=== PATIENT | female | born 1985 | race American Indian/Alaskan Native ===

== ENCOUNTER 2021-06-03 12:16 | Emergency (ER) | payer SELFPAY ==
[2021-06-03 12:25] VITALS: BP 116/77
--- NOTE | 2021-06-03 13:05 | Emergency Department Report ---
ED Abdominal Pain HPI - General Chief Complaint: Abdominal Pain Stated Complaint: KIDNEYS,DEHYDRATED,VOMITING Time Seen by Provider: 06/03/21 13:00 Source: patient Mode of arrival: Ambulatory Limitations: No Limitations - History of Present Illness Initial Comments: 35-year-old -[place] female presents to the emergency room for left upper abdominal pain that wraps around her back x1 month. Patient reports diarrhea and vomiting since this morning. Patient is 5 para 3 last menstrual period 06/01/2021. Patient does admit to alcohol use EtOH a and cigarette use. Patient denies any urinary symptoms. Past medical history of asthma currently takes no medications on a daily basis has had kidney stones and has had lithotripsy in the past. Denies any hematuria. MD Complaint: abdominal pain Onset/Timin -: month(s) Location: LUQ Radiation: none, back Migration to: no migration Severity scale (0 -10): 9 Quality: cramping, stabbing, sharp Consistency: intermittent Improves With: nothing Worsens With: nothing Associated Symptoms: denies other symptoms - Related Data LMP Date: 06/01/21 Previous Rx's Medication Instructions Recorded Last Taken Type Cyclobenzaprine [Flexeril] 1 tab PO BID PRN #20 tablet 01/28/16 Unknown Rx Ibuprofen [Motrin 800 MG tab] 1 tab PO Q8HR PRN #30 tablet 01/28/16 Unknown Rx Albuterol Mdi (or & Nicu Only) 2 puff IH QID PRN #1 inhalation 04/15/16 Unknown Rx [ProAir HFA Inhaler] Azithromycin [Zithromax TAB] 250 mg PO QDAY #5 tablet 04/15/16 Unknown Rx predniSONE [Deltasone] 20 mg PO QDAY #5 tab 04/15/16 Unknown Rx Acetaminophen/Codeine [Tylenol 1 tab PO Q6H PRN #12 tab 06/03/21 Unknown Rx /Codeine # 3 tab] Allergies Allergy/AdvReac Type Severity Reaction Status Date / Time No Known Allergies Allergy Verified 04/15/16 15:48 ED Review of Systems ROS: Stated complaint: KIDNEYS,DEHYDRATED,VOMITING Other details as noted in HPI Comment: All other systems reviewed and negative ED Past Medical Hx - Past Medical History Previous Medical History?: Yes Hx Kidney Stones: Yes Hx Asthma: Yes - Surgical History Additional Surgical History: x 2. LITHOTRIPSY - Social History Smoking Status: Current Every Day Smoker Substance Use Type: Alcohol - Medications Home Medications: Home Medications Medication Instructions Recorded Confirmed Last Taken Type Cyclobenzaprine [Flexeril] 1 tab PO BID PRN #20 tablet 01/28/16 Unknown Rx Ibuprofen [Motrin 800 MG tab] 1 tab PO Q8HR PRN #30 tablet 01/28/16 Unknown Rx Albuterol Mdi (or & Nicu Only) 2 puff IH QID PRN #1 inhalation 04/15/16 Unknown Rx [ProAir HFA Inhaler] Azithromycin [Zithromax TAB] 250 mg PO QDAY #5 tablet 04/15/16 Unknown Rx predniSONE [Deltasone] 20 mg PO QDAY #5 tab 04/15/16 Unknown Rx Acetaminophen/Codeine [Tylenol 1 tab PO Q6H PRN #12 tab 06/03/21 Unknown Rx /Codeine # 3 tab] ED Physical Exam - General Limitations: No Limitations General appearance: alert, in no apparent distress - Head Head exam: Present: atraumatic, normocephalic - Eye Eye exam: Present: normal appearance - ENT ENT exam: Present: mucous membranes moist - Respiratory Respiratory exam: Present: normal lung sounds bilaterally. Absent: respiratory distress, chest wall tenderness - Cardiovascular Cardiovascular Exam: Present: regular rate - GI/Abdominal GI/Abdominal exam: Present: soft, tenderness, guarding, normal bowel sounds - Back Exam Back exam: Present: normal inspection - Neurological Exam Neurological exam: Present: alert, oriented X3, normal gait - Psychiatric Psychiatric exam: Present: normal affect, normal mood - Skin Skin exam: Present: warm, dry, intact, normal color. Absent: rash ED Course Vital Signs 06/03/21 12:23 Temperature 98.7 F Pulse Rate 89 Respiratory 16 Rate Blood Pressure 116/77 O2 Sat by Pulse 99 Oximetry ED Medical Decision Making - Lab Data Result diagrams: 06/03/21 13:09 06/03/21 13:09 - Radiology Data Radiology results: report reviewed [facility] [address] [place] [address] Cat Scan Report Signed Patient: MERARY KNIGHT MR#: [id number] : 1985 Acct:[id number] Age/Sex: 35 / F ADM Date: 06/03/21 Loc: ED Attending Dr: Ordering Physician: JESSICA ROBERTS Date of Service: 06/03/21 Procedure(s): CT abdomen pelvis w con Accession Number(s): [id number] cc: JESSICA ROBERTS CT ABDOMEN AND PELVIS WITH CONTRAST INDICATION: LUQ pain and tenderness. CONTRAST: 100 cc Omnipaque 300 IV COMPARISON: None currently available. All CT scans at this location are performed using CT dose reduction for ALARA by means of automated exposure control. FINDINGS: Tiny probable bone island is seen in the left ischium. Lung bases show no significant abnormalities. No pneumoperitoneum is seen. In the medial segment of the left lobe of the liver a probably enhancing hyperdense area, slightly heterogenous, is seen measuring 18 mm. A similar 12 mm area is seen more inferiorly in the junction of the right and left lobes. No other hepatic lesions are obvious. A band of hypodensity posteriorly in the right lobe probably is not significant. Gallbladder and bile ducts appear within normal limits. Spleen shows no abnormalities. I see no abnormalities of the gallbladder, bile ducts, pancreas, or adrenals. The kidneys are seen in early phase of contrast making cortical evaluation more difficult. There is a suggestion of bilateral mid pole cortical lesions measuring 8 mm on the right and 6 mm on the left which are indeterminate. A similar area of cortical decreased density is seen measuring 8 mm medially in the mid to lower left kidney. No other abdominal masses are seen. Appendix appears within normal limits. No evidence of bowel obstruction is seen. Only a trace of free fluid is seen of the pelvis which is nonspecific. Small probable follicular-type ovarian cysts are noted bilaterally. No lymphadenopathy is seen. No urinary obstructive changes are noted. Appearance of the stomach probably just relates to the early phase of contrast. IMPRESSION: 1. Probable hepatic hemangiomata. Recommend follow-up. 2. The kidneys are seen in an early phase of contrast. I do not see obvious edema to suggest pyelonephritis. However, there are small focal areas bilaterally of decreased cortical enhancement which could just relate to the very early phase of contrast but small focal renal lesions or focal areas of pyelonephritis are not excluded. Infarction is thought unlikely in this young patient with only a trace amount of atherosclerotic change and apparent good vascular filling on this study. I would suggest follow-up and clinical correlation. Signer Name: Karthikeyan Morocho MD Signed: 06/03/2021 6:01 PM Workstation Name: [id number] Transcribed By: GJ Dictated By: Karthikeyan Morocho MD Electronically Authenticated By: Karthikeyan Morocho MD Signed Date/Time: 06/03/211800 DD/ 49 TD/TT: Print Cancel - Medical Decision Making 35-year-old -[place] female presents to the emergency room for left upper abdominal pain that wraps around her back x1 month. Patient reports diarrhea and vomiting since this morning. Patient is 5 para 3 last menstrual period 06/01/2021. Patient does admit to alcohol use EtOH a and cigarette use. Patient denies any urinary symptoms. Past medical history of asthma currently takes no medications on a daily basis has had kidney stones and has had lithotripsy in the past. Denies any hematuria. Critical care attestation.: If time is entered above; I have spent that time in minutes in the direct care of this critically ill patient, excluding procedure time. ED Disposition Clinical Impression: Abdominal pain Qualifiers: Abdominal location: epigastric Qualified Code(s): R10.13 - Epigastric pain Ovarian cyst Qualifiers: Laterality: bilateral Qualified Code(s): N83.201 - Unspecified ovarian cyst, right side; N83.202 - Unspecified ovarian cyst, left side Disposition: TO HOME OR SELFCARE Is pt being admited?: No Does the pt Need Aspirin: No Condition: Stable Instructions: Abdominal Pain (ED), Abdominal Pain, Adult, [place] Additional Instructions: Labs are stable. Urinalysis is negative for any acute infection. CT scan is on actionable I do recommend you following up with a kidney specialist. You have a kidney lesions. To have bilateral ovarian cyst. Recommend follow-up with [facility]. Prescriptions: Acetaminophen/Codeine [Tylenol /Codeine # 3 tab] 1 tab PO Q6H PRN #12 tab PRN Reason: Pain , Severe (7-10) Referrals: PRIMARY CARE, [Primary Care Provider] - 3-5 Days REENA CARTER MD [Staff Physician] - 3-5 Days FLORESITA CARTER MD [Staff Physician] - 3-5 Days Forms: Work/School Release Form(ED) Time of Disposition: 18:30
[2021-06-03 13:36] LABS: Basophils # (Auto) 0.1 K/mm3 (0.0-0.1); Basophils % (Auto) 0.8 % (0.0-1.8); Eosinophils # (Auto) 0.1 K/mm3 (0.0-0.4); Eosinophils % (Auto) 1.1 % (0.0-4.3); Hematocrit 42.8 % (30.3-42.9); Hemoglobin 14.7 gm/dl (10.1-14.3); Lymphocytes # (Auto) 1.8 K/mm3 (1.2-5.4); Lymphocytes % (Auto) 25.7 % (13.4-35.0); Mean Corpuscular HGB Conc 34 % (30-34); Mean Corpuscular Volume 104 fl (79-97); Monocytes # (Auto) 0.5 K/mm3 (0.0-0.8); Monocytes % (Auto) 6.8 % (0.0-7.3); Platelet Count 317 K/mm3 (140-440); Red Blood Count 4.12 M/mm3 (3.65-5.03); Red Cell Distribution Width 12.8 % (13.2-15.2)
[2021-06-03 13:48] LABS: Alanine Aminotransferase 11 units/L (7-56); Albumin 4.3 g/dL (3.9-5); Blood Urea Nitrogen 12 mg/dL (7-17); Calcium 9.3 mg/dL (8.4-10.2); Hemolysis Index 8
[2021-06-03 13:53] LABS: BUN/Creatinine Ratio 17
[2021-06-03] MEDS ORDERED: SODIUM CHLORIDE 0.9% 1000 ML 1,000 ML IV ONE (14:24)
[2021-06-03] MEDS ORDERED: ONDANSETRON 4 MG/2 ML INJ IV ONE ×2 (14:24→17:02)
[2021-06-03] MEDS ORDERED: MORPHINE 4 MG/1 ML INJ IV ONE (14:39)
[2021-06-03 15:10] LABS: Color,Urine Yellow (Yellow)
[2021-06-03 15:11] LABS: Bilirubin,Urine Negative (Negative); Blood,Urine Small (Negative); Mucus,Urine Few /HPF; Protein,Urine <15 mg/dL mg/dL (Negative); Urobilinogen,Urine < 2.0 mg/dL (<2.0)
[2021-06-03 16:50] LABS: HCG Qualitative,Urine Negative (Negative)
[2021-06-03] MEDS ORDERED: HYDROmorphone 1 MG/1 ML INJ IV ONE (17:02)
[2021-06-03] MEDS ORDERED: diphenhydrAMINE 50 MG/ML VIAL IV ONE (17:02)
--- NOTE | 2021-06-03 18:05 | Cat Scan Report ---
CT ABDOMEN AND PELVIS WITH CONTRAST INDICATION: LUQ pain and tenderness. CONTRAST: 100 cc Omnipaque 300 IV COMPARISON: None currently available. All CT scans at this location are performed using CT dose reduction for ALARA by means of automated e xposure control. FINDINGS: Tiny probable bone island is seen in the left ischium. Lung bases show no significant abnor malities. No pneumoperitoneum is seen. In the medial segment of the left lobe of the liver a probably enhancing hyperdense area, slightly he terogenous, is seen measuring 18 mm. A similar 12 mm area is seen more inferiorly in the junction of the right and left lobes. No other hepatic lesions are obvious. A band of hypodensity posteriorly in the right lobe probably is not significant. Gallbladder and bile ducts appear within normal limits. Spleen shows no abnormalities. I see no abnormalities of the gallbladder, bile ducts, pancreas, or ad renals. The kidneys are seen in early phase of contrast making cortical evaluation more difficult. Th ere is a suggestion of bilateral mid pole cortical lesions measuring 8 mm on the right and 6 mm on th e left which are indeterminate. A similar area of cortical decreased density is seen measuring 8 mm m edially in the mid to lower left kidney. No other abdominal masses are seen. Appendix appears within normal limits. No evidence of bowel obstruction is seen. Only a trace of free fluid is seen of the pelvis which is nonspecific. Small probable follicular-type ovarian cysts are n oted bilaterally. No lymphadenopathy is seen. No urinary obstructive changes are noted. Appearance of the stomach probably just relates to the early phase of contrast. IMPRESSION: 1. Probable hepatic hemangiomata. Recommend follow-up. 2. The kidneys are seen in an early phase of contrast. I do not see obvious edema to suggest pyelonep hritis. However, there are small focal areas bilaterally of decreased cortical enhancement which coul d just relate to the very early phase of contrast but small focal renal lesions or focal areas of fidel lonephritis are not excluded. Infarction is thought unlikely in this young patient with only a trace amount of atherosclerotic change and apparent good vascular filling on this study. I would suggest fo llow-up and clinical correlation. Signer Name: Karthikeyan Morocho MD Signed: 06/03/2021 6:01 PM Workstation Name: [id number]
== END 2021-06-03 18:29 | disposition home or self-care (01) ==
LOC: ED 12:16
DX: R10.12 Left upper quadrant pain (principal); N83.202 Unspecified ovarian cyst, left side; E86.0 Dehydration; J45.909 Unspecified asthma, uncomplicated; Z98.890 Other specified postprocedural states; F17.200 Nicotine dependence, unspecified, uncomplicated; Z87.442 Personal history of urinary calculi
CPT/HCPCS: 36415; 74177; 80053; 81001; 81025; 83690; 85025; 96361; 96374; 96375; 96376; 99284; J1170; J1200; J2270; J2405; J7030; Q9967